=== PATIENT | female | born 1955 | race Caucasian/White ===

== ENCOUNTER 2024-10-20 16:49 | Outpatient (CLI) | payer BC | END 2024-10-20 23:59 | disposition home or self-care (01) | LOC: MRI02 16:49 | PROVIDERS: ATTEND Anesthesiology | DX: M51.34 Other intervertebral disc degeneration, thoracic region (principal); M47.814 Spondylosis without myelopathy or radiculopathy, thoracic region; M41.84 Other forms of scoliosis, thoracic region | CPT/HCPCS: 72146 ==